=== PATIENT | female | born 1945 | race Caucasian/White ===

== ENCOUNTER 2018-05-03 13:37 | Inpatient (IN) | payer OTHER, MEDICAID ==
[~2018-05-03] VITALS: Ht 180.3 cm; Wt 64.9 kg
[2018-05-03 13:40] VITALS: BP_SYST 127
[2018-05-03] MEDS ORDERED: NACL 0.9% 1,000 ML IV ONE (13:45)
[2018-05-03 14:07] LABS: BASOPHILS # (AUTO) 0.1 K/uL (0.0-0.2); BASOPHILS % (AUTO) 1.2 % (0.0-2.0); EOSINOPHILS # (AUTO) 0.1 K/uL (0.0-0.4); HEMATOCRIT 33.9 % (36-48); HEMOGLOBIN 11.5 g/dL (12.0-16.0); LYMPHOCYTES # (AUTO) 1.2 K/uL (1.0-5.5); LYMPHOCYTES % (AUTO) 21.9 % (20.5-51.5); MEAN CORPUSCULAR HEMOGLOBIN 34 pg (27-31); MEAN CORPUSCULAR HGB CONC 34 % (32-36); MEAN CORPUSCULAR VOLUME 100 fL (79.0-98.0); MONOCYTES # (AUTO) 0.3 K/uL (0.0-1.0); MONOCYTES % (AUTO) 5.5 % (1.7-9.3); NEUTROPHILS # (AUTO) 3.9 K/uL (1.8-7.7); NEUTROPHILS % (AUTO) 69.4 % (40.0-70.0); PLATELET COUNT (AUTO) 228 K/uL (130-430); RED BLOOD CELL COUNT(AUTO) 3.38 MIL/uL (4.2-6.2); RED CELL DISTRIBUTION WIDTH 12.9 % (9.0-15.0); WHITE BLOOD COUNT (AUTO) 5.6 K/uL (4.8-10.8)
[2018-05-03 14:15] LABS: ANION GAP 6 (5-15); CALCIUM 8.7 mg/dL (8.4-11.0); CHLORIDE 99 mmol/L (98-107); GLUCOSE 167 mg/dL (70-99); POTASSIUM 4.3 mmol/L (3.5-5.1); SODIUM SERUM 133 mmol/L (136-145); UREA NITROGEN, BLOOD 19 mg/dL (8-21)
[2018-05-03 14:20] LABS: ALANINE AMINOTRANSFERASE 25 U/L (12-78); ALBUMIN 3.1 g/dL (3.4-4.8); ASPARTATE AMINOTRANSFERASE 20 U/L (10-37); TOTAL BILIRUBIN 0.3 mg/dL (0.0-1.0)
[2018-05-03 15:09] LABS: BILIRUBIN,URINE NEGATIVE (NEGATIVE); BLOOD, URINE NEGATIVE (NEGATIVE); CLARITY/URINE CLEAR (CLEAR); COLOR,URINE YELLOW (YELLOW); GLUCOSE,URINE NEGATIVE (NEGATIVE); KETONES,URINE NEGATIVE (NEGATIVE); LEUKOCYTE ESTERASE ,URINE NEGATIVE (NEGATIVE); NITRITE, URINE NEGATIVE (NEGATIVE); PROTEIN URINE NEGATIVE (NEGATIVE); UROBILINOGEN,URINE 0.2 (0.2-1.0)
[2018-05-03] MEDS ORDERED: PRIM50TA27 PO (16:16)
[2018-05-03] MEDS ORDERED: HYDR-3924 PO (16:16)
[2018-05-03] MEDS ORDERED: ANT30 PO (16:16)
[2018-05-03] MEDS ORDERED: DICL75TA5 PO (16:16)
[2018-05-03] MEDS ORDERED: MULT PO (16:16)
[2018-05-03] MEDS ORDERED: NEU100 PO (16:16)
[2018-05-03] MEDS ORDERED: CYAI1000 IM (16:16)
[2018-05-03] MEDS ORDERED: FLUT16SP16 NS (16:16)
[2018-05-03] MEDS ORDERED: CALC1TAB26 PO (16:16)
[2018-05-03] MEDS ORDERED: FAMO20TA8 PO (16:16)
[2018-05-03] MEDS ORDERED: ACET325T53 PO ×2 (16:16)
[2018-05-03] MEDS ORDERED: RIVA15TA PO (16:16)
[2018-05-03] MEDS ORDERED: VITD2000 PO (16:16)
[2018-05-03 16:53] VITALS: BP_SYST 132
[2018-05-03] MEDS: KCL 20 mEq in D5/0.45NS 1000mL 1,000 ML IV SCH (18:37)
[2018-05-03] MEDS ORDERED: MILK OF MAGNESIA 30 ML UDC PO PRN (19:45)
[2018-05-03] MEDS ORDERED: ACETAMINOPHEN 325 MG TABLET PO PRN ×2 (19:45)
[2018-05-03] MEDS ORDERED: FLUTICASONE PROPIONATE 50 mCg/SPRAY 16 GM NS PRN (19:45)
[2018-05-03] MEDS ORDERED: HYDROcodone/ACETAMIN 7.5-325 MG TAB PO PRN (19:45)
[2018-05-03] MEDS ORDERED: MAG-AL HYDROX/SIMETH 30 ML UDC PO PRN (19:45)
[2018-05-03 20:00] VITALS: BP_SYST 110
[2018-05-03] MEDS: GABAPENTIN 100 MG CAPSULE PO SCH (20:47)
[2018-05-03] MEDS: RIVAROXABAN 15 MG TABLET PO SCH (20:48)
[2018-05-03] MEDS: PRIMIDONE 50 MG TABLET PO SCH (20:48)
[2018-05-03] MEDS: DICLOFENAC SODIUM 25 MG TABLET.DR PO SCH (20:48)
[2018-05-03] MEDS: MEGESTROL ACETATE 400 MG/10 ML UDC PO SCH (20:49)
[2018-05-04 01:00] VITALS: BP_SYST 149
[2018-05-04] MEDS: KCL 20 mEq in D5/0.45NS 1000mL 1,000 ML IV SCH ×2 (05:10→17:43)
[2018-05-04 08:00] VITALS: BP_SYST 116
[2018-05-04] MEDS: MEGESTROL ACETATE 400 MG/10 ML UDC PO SCH ×2 (09:16→20:09)
[2018-05-04] MEDS: CHOLECALCIFEROL (VITAMIN D3) 2,000 UNIT TABLET PO SCH (09:17)
[2018-05-04] MEDS: MULTIVITAMINS TAB 1 TABLET PO SCH (09:17)
[2018-05-04] MEDS: DICLOFENAC SODIUM 25 MG TABLET.DR PO SCH ×2 (09:17→20:08)
[2018-05-04] MEDS: PRIMIDONE 50 MG TABLET PO SCH ×2 (09:17→20:09)
[2018-05-04] MEDS: GABAPENTIN 100 MG CAPSULE PO SCH ×2 (09:17→20:09)
[2018-05-04] MEDS: FAMOTIDINE 20 MG TABLET PO SCH (09:17)
[2018-05-04] MEDS ORDERED: MILK OF MAGNESIA 30 ML UDC PO PRN (10:15)
[2018-05-04] MEDS ORDERED: CALCIUM CARBONATE/VITAMIN D3 1 TAB TABLET PO ONE (10:15)
[2018-05-04 12:30] VITALS: BP_SYST 119
[2018-05-04 16:30] VITALS: BP_SYST 116
[2018-05-04 20:00] VITALS: BP_SYST 136
[2018-05-04] MEDS: RIVAROXABAN 15 MG TABLET PO SCH (20:09)
[2018-05-05 01:12] VITALS: BP_SYST 130
[2018-05-05] MEDS: GABAPENTIN 100 MG CAPSULE PO SCH ×2 (09:39→21:04)
[2018-05-05] MEDS: MULTIVITAMINS TAB 1 TABLET PO SCH (09:39)
[2018-05-05] MEDS: CALCIUM CARBONATE/VITAMIN D3 1 TAB TABLET PO SCH (09:39)
[2018-05-05] MEDS: CHOLECALCIFEROL (VITAMIN D3) 2,000 UNIT TABLET PO SCH (09:39)
[2018-05-05] MEDS: FAMOTIDINE 20 MG TABLET PO SCH (09:40)
[2018-05-05] MEDS: MEGESTROL ACETATE 400 MG/10 ML UDC PO SCH ×2 (09:40→21:04)
[2018-05-05] MEDS: DICLOFENAC SODIUM 25 MG TABLET.DR PO SCH ×2 (09:40→21:05)
[2018-05-05] MEDS: PRIMIDONE 50 MG TABLET PO SCH ×2 (09:40→21:04)
[2018-05-05] MEDS: KCL 20 mEq in D5/0.45NS 1000mL 1,000 ML IV SCH ×2 (10:21→23:46)
[2018-05-05 12:48] VITALS: BP_SYST 149
[2018-05-05 16:29] VITALS: BP_SYST 107
[2018-05-05 20:00] VITALS: BP_SYST 132
[2018-05-05] MEDS: MUPIROCIN 2% TOPICAL OINTMENT 22 GM NS SCH (21:04)
[2018-05-05] MEDS: RIVAROXABAN 15 MG TABLET PO SCH (21:04)
[2018-05-05 23:27] VITALS: BP_SYST 146
[2018-05-06 08:00] VITALS: BP_SYST 130
[2018-05-06] MEDS: PRIMIDONE 50 MG TABLET PO SCH (10:25)
[2018-05-06] MEDS: CHOLECALCIFEROL (VITAMIN D3) 2,000 UNIT TABLET PO SCH (10:25)
[2018-05-06] MEDS: GABAPENTIN 100 MG CAPSULE PO SCH (10:25)
[2018-05-06] MEDS: MEGESTROL ACETATE 400 MG/10 ML UDC PO SCH (10:25)
[2018-05-06] MEDS: FAMOTIDINE 20 MG TABLET PO SCH (10:25)
[2018-05-06] MEDS: MULTIVITAMINS TAB 1 TABLET PO SCH (10:25)
[2018-05-06] MEDS: DICLOFENAC SODIUM 25 MG TABLET.DR PO SCH (10:26)
[2018-05-06] MEDS: CALCIUM CARBONATE/VITAMIN D3 1 TAB TABLET PO SCH (10:26)
[2018-05-06] MEDS: MUPIROCIN 2% TOPICAL OINTMENT 22 GM NS SCH (10:26)
[2018-05-06 12:20] VITALS: BP_SYST 130
[2018-05-06 15:12] VITALS: BP_SYST 130
[2018-05-06 16:08] VITALS: BP_SYST 117
[2018-06-02] MEDS ORDERED: CYANOCOBALAMIN 1000 MCG/ML VIAL IM SCH (06:30)
== END 2018-05-06 16:15 | DRG 641 ==
LOC: SED 13:37 → SMU 15:59
PROVIDERS: ADMIT Family Medicine; ATTEND Family Medicine
DX: E86.0 Dehydration (principal); E44.1 Mild protein-calorie malnutrition; Z68.1 Body mass index [BMI] 19.9 or less, adult; R62.7 Adult failure to thrive; G20 Parkinson's disease; M25.552 Pain in left hip; D64.9 Anemia, unspecified; G40.909 Epilepsy, unspecified, not intractable, without status epilepticus; M81.0 Age-related osteoporosis without current pathological fracture; M19.90 Unspecified osteoarthritis, unspecified site; Z86.718 Personal history of other venous thrombosis and embolism; Z87.81 Personal history of (healed) traumatic fracture; Z88.5 Allergy status to narcotic agent; Z88.8 Allergy status to other drugs, medicaments and biological substances
CPT/HCPCS: 36415; 71045; 73502; 80053; 81003; 83605; 84484; 85025; 87040-TC; 87081; 93005; 96360; 97110-GP; 97116-GP; 97530-GP; 99285

== ENCOUNTER 2018-05-10 09:02 | Outpatient (CLI) | payer OTHER ==
[~2018-05-10 09:02] MED LIST: ACET325T53 PO; ANT30 PO; CALC1TAB26 PO; CYAI1000 IM; DICL75TA5 PO; FAMO20TA8 PO; FLUT16SP16 NS; HYDR-3924 PO; MULT PO; NEU100 PO; PRIM50TA27 PO; RIVA15TA PO; VITD2000 PO
== END 2018-05-10 20:54 | disposition home or self-care (01) ==
LOC: SMI 09:02
PROVIDERS: ATTEND Family Medicine
DX: I63.9 Cerebral infarction, unspecified (principal)
CPT/HCPCS: 70551

== ENCOUNTER 2018-05-18 03:20 | Inpatient (IN) | payer OTHER, MEDICAID ==
[~2018-05-18] VITALS: Ht 170.2 cm; Wt 57.6 kg
[2018-05-18 03:25] VITALS: BP_SYST 169
[2018-05-18 04:29] LABS: BASOPHILS # (AUTO) 0.1 K/uL (0.0-0.2); EOSINOPHILS # (AUTO) 0.1 K/uL (0.0-0.4); EOSINOPHILS % (AUTO) 1.8 % (0.0-4.0); HEMATOCRIT 35.9 % (36-48); HEMOGLOBIN 12.7 g/dL (12.0-16.0); LYMPHOCYTES # (AUTO) 1.3 K/uL (1.0-5.5); LYMPHOCYTES % (AUTO) 17.3 % (20.5-51.5); MEAN CORPUSCULAR HEMOGLOBIN 35 pg (27-31); MEAN CORPUSCULAR HGB CONC 35 % (32-36); MEAN CORPUSCULAR VOLUME 99 fL (79.0-98.0); MONOCYTES # (AUTO) 0.3 K/uL (0.0-1.0); MONOCYTES % (AUTO) 3.6 % (1.7-9.3); NEUTROPHILS # (AUTO) 5.9 K/uL (1.8-7.7); NEUTROPHILS % (AUTO) 76.3 % (40.0-70.0); PLATELET COUNT (AUTO) 316 K/uL (130-430); RED BLOOD CELL COUNT(AUTO) 3.62 MIL/uL (4.2-6.2); RED CELL DISTRIBUTION WIDTH 12.6 % (9.0-15.0); WHITE BLOOD COUNT (AUTO) 7.7 K/uL (4.8-10.8)
[2018-05-18 04:37] LABS: ANION GAP 9 (5-15); CALCIUM 8.2 mg/dL (8.4-11.0); CHLORIDE 91 mmol/L (98-107); GLUCOSE 125 mg/dL (70-99); POTASSIUM 3.8 mmol/L (3.5-5.1); SODIUM SERUM 125 mmol/L (136-145); UREA NITROGEN, BLOOD 15 mg/dL (8-21)
[2018-05-18 04:44] LABS: ALANINE AMINOTRANSFERASE 28 U/L (12-78); ALBUMIN 3.4 g/dL (3.4-4.8); ASPARTATE AMINOTRANSFERASE 22 U/L (10-37); TOTAL BILIRUBIN 0.5 mg/dL (0.0-1.0)
[2018-05-18 05:08] LABS: PHENYTOIN (DILANTIN) < 0.5 ug/mL (10.0-20.0)
[2018-05-18] MEDS ORDERED: MEGE400O PO (05:31)
[2018-05-18] MEDS ORDERED: LEVE500T9 PO (05:31)
[2018-05-18] MEDS ORDERED: PRIM50TA27 PO (05:31)
[2018-05-18] MEDS ORDERED: PHEN100C4 PO (05:31)
[2018-05-18] MEDS ORDERED: POTASSIUM CHLORIDE 20 MEQ in D5NS 1,000 ML IV SCH ×2 (05:40→07:00)
[2018-05-18 05:44] LABS: BILIRUBIN,URINE NEGATIVE (NEGATIVE); BLOOD, URINE NEGATIVE (NEGATIVE); CLARITY/URINE CLEAR (CLEAR); COLOR,URINE YELLOW (YELLOW); GLUCOSE,URINE NEGATIVE (NEGATIVE); KETONES,URINE TRACE (NEGATIVE); LEUKOCYTE ESTERASE ,URINE NEGATIVE (NEGATIVE); NITRITE, URINE NEGATIVE (NEGATIVE); PH,URINE 6.5 (5.0-8.0); PROTEIN URINE NEGATIVE (NEGATIVE); UROBILINOGEN,URINE 0.2 (0.2-1.0)
[2018-05-18] MEDS ORDERED: LORazepam 2 MG/ML VIAL IVP PRN (05:45)
[2018-05-18 06:08] VITALS: BP_SYST 158
[2018-05-18] MEDS ORDERED: levETIRAcetam 500 MG TABLET PO SCH ×2 (09:00→21:00)
[2018-05-18] MEDS ORDERED: HYDROcodone/ACETAMIN 7.5-325 MG TAB PO PRN (09:45)
[2018-05-18] MEDS ORDERED: FLUTICASONE PROPIONATE 50 mCg/SPRAY 16 GM NS PRN (09:45)
[2018-05-18] MEDS ORDERED: ACETAMINOPHEN 325 MG TABLET PO PRN ×2 (09:45)
[2018-05-18] MEDS ORDERED: MAG-AL HYDROX/SIMETH 30 ML UDC PO PRN (09:45)
[2018-05-18] MEDS ORDERED: MILK OF MAGNESIA 30 ML UDC PO PRN ×2 (09:45→10:15)
[2018-05-18] MEDS ORDERED: CALCIUM CARBONATE/VITAMIN D3 1 TAB TABLET PO ONE (10:15)
[2018-05-18] MEDS ORDERED: PRIMIDONE 50 MG TABLET PO ONE (10:30)
[2018-05-18] MEDS ORDERED: CHOLECALCIFEROL (VITAMIN D3) 2,000 UNIT TABLET PO ONE (10:30)
[2018-05-18] MEDS ORDERED: MULTIVITAMINS TAB 1 TABLET PO ONE (10:30)
[2018-05-18] MEDS ORDERED: DICLOFENAC SODIUM 25 MG TABLET.DR PO ONE (10:30)
[2018-05-18] MEDS ORDERED: SODIUM CHLORIDE 3% *HI-ALERT* 500 ML IV SCH (10:30)
[2018-05-18] MEDS ORDERED: MEGESTROL ACETATE 400 MG/10 ML UDC PO ONE (10:30)
[2018-05-18] MEDS ORDERED: FAMOTIDINE 20 MG TABLET PO ONE (10:30)
[2018-05-18 12:45] VITALS: BP_SYST 125
[2018-05-18 14:24] LABS: ANION GAP 7 (5-15); CALCIUM 8.7 mg/dL (8.4-11.0); CHLORIDE 94 mmol/L (98-107); CREATININE 0.56 mg/dL (0.55-1.30); GLUCOSE 114 mg/dL (70-99); POTASSIUM 4.2 mmol/L (3.5-5.1); SODIUM SERUM 128 mmol/L (136-145); UREA NITROGEN, BLOOD 13 mg/dL (8-21)
[2018-05-18 14:40] LABS: THYROID STIMULATING HORMONE 0.97 uIu/mL (0.34-4.82)
[2018-05-18 14:51] LABS: PHENYTOIN (DILANTIN) < 0.5 ug/mL (10.0-20.0)
[2018-05-18 16:15] LABS: PHENOBARBITAL < 1.0 ug/mL (15.0-40.0)
[2018-05-18 16:51] VITALS: BP_SYST 115
[2018-05-18 20:30] VITALS: BP_SYST 123
[2018-05-18] MEDS: PHENYTOIN 100 MG CAPSULE PO SCH (20:59)
[2018-05-18] MEDS: DICLOFENAC SODIUM 25 MG TABLET.DR PO SCH (21:00)
[2018-05-18] MEDS: PRIMIDONE 50 MG TABLET PO SCH (21:00)
[2018-05-18] MEDS: levETIRAcetam 500 MG TABLET PO SCH (21:00)
[2018-05-18] MEDS: RIVAROXABAN 15 MG TABLET PO SCH (21:00)
[2018-05-19 00:31] VITALS: BP_SYST 116
[2018-05-19 06:11] LABS: ALANINE AMINOTRANSFERASE 22 U/L (12-78); ALBUMIN 2.7 g/dL (3.4-4.8); ANION GAP 5 (5-15); ASPARTATE AMINOTRANSFERASE 16 U/L (10-37); CALCIUM 8.2 mg/dL (8.4-11.0); CHLORIDE 99 mmol/L (98-107); CREATININE 0.49 mg/dL (0.55-1.30); GLUCOSE 92 mg/dL (70-99); POTASSIUM 4.2 mmol/L (3.5-5.1); SODIUM SERUM 129 mmol/L (136-145); TOTAL BILIRUBIN 0.4 mg/dL (0.0-1.0); UREA NITROGEN, BLOOD 20 mg/dL (8-21)
[2018-05-19 06:26] LABS: BASOPHILS # (AUTO) 0.1 K/uL (0.0-0.2); BASOPHILS % (AUTO) 1.3 % (0.0-2.0); EOSINOPHILS # (AUTO) 0.2 K/uL (0.0-0.4); EOSINOPHILS % (AUTO) 2.5 % (0.0-4.0); HEMATOCRIT 33.8 % (36-48); HEMOGLOBIN 11.9 g/dL (12.0-16.0); LYMPHOCYTES # (AUTO) 1.6 K/uL (1.0-5.5); LYMPHOCYTES % (AUTO) 24.8 % (20.5-51.5); MEAN CORPUSCULAR HEMOGLOBIN 35 pg (27-31); MEAN CORPUSCULAR HGB CONC 35 % (32-36); MEAN CORPUSCULAR VOLUME 100 fL (79.0-98.0); MONOCYTES # (AUTO) 0.4 K/uL (0.0-1.0); MONOCYTES % (AUTO) 6.4 % (1.7-9.3); NEUTROPHILS # (AUTO) 4.3 K/uL (1.8-7.7); PLATELET COUNT (AUTO) 251 K/uL (130-430); RED CELL DISTRIBUTION WIDTH 12.5 % (9.0-15.0); WHITE BLOOD COUNT (AUTO) 6.6 K/uL (4.8-10.8)
[2018-05-19 08:00] VITALS: BP_SYST 115
[2018-05-19] MEDS: levETIRAcetam 500 MG TABLET PO SCH ×2 (08:14→21:41)
[2018-05-19] MEDS: CALCIUM CARBONATE/VITAMIN D3 1 TAB TABLET PO SCH (08:15)
[2018-05-19] MEDS: DICLOFENAC SODIUM 25 MG TABLET.DR PO SCH ×2 (08:15→21:41)
[2018-05-19] MEDS: MULTIVITAMINS TAB 1 TABLET PO SCH (08:15)
[2018-05-19] MEDS: MEGESTROL ACETATE 400 MG/10 ML UDC PO SCH (08:15)
[2018-05-19] MEDS: PRIMIDONE 50 MG TABLET PO SCH ×2 (08:15→21:40)
[2018-05-19] MEDS: CHOLECALCIFEROL (VITAMIN D3) 2,000 UNIT TABLET PO SCH (08:16)
[2018-05-19] MEDS: FAMOTIDINE 20 MG TABLET PO SCH (08:16)
[2018-05-19] MEDS ORDERED: SODIUM CHLORIDE 3% *HI-ALERT* 250 ML IV ONE (10:15)
[2018-05-19 12:24] VITALS: BP_SYST 112
[2018-05-19 16:16] LABS: BILIRUBIN,URINE NEGATIVE (NEGATIVE); BLOOD, URINE 2+ (NEGATIVE); CLARITY/URINE CLOUDY (CLEAR); COLOR,URINE YELLOW (YELLOW); GLUCOSE,URINE NEGATIVE (NEGATIVE); KETONES,URINE NEGATIVE (NEGATIVE); LEUKOCYTE ESTERASE ,URINE 2+ (NEGATIVE); NITRITE, URINE NEGATIVE (NEGATIVE); PROTEIN URINE NEGATIVE (NEGATIVE); UROBILINOGEN,URINE 0.2 (0.2-1.0)
[2018-05-19 16:20] LABS: BACTERIA,URINE MODERATE /HPF (None Seen); URINE AMORPHOUS URATE 2+ /HPF (None Seen)
[2018-05-19] MEDS ORDERED: CEFEPIME 1 GM in D5W 50 ML IV ONE (19:00)
[2018-05-19 20:00] VITALS: BP_SYST 117
[2018-05-19] MEDS ORDERED: MEROPENEM 500 MG in NS 50 ML IV SCH (21:00)
[2018-05-19] MEDS: PHENYTOIN 100 MG CAPSULE PO SCH (21:41)
[2018-05-19] MEDS: RIVAROXABAN 15 MG TABLET PO SCH (21:41)
[2018-05-19 23:05] VITALS: BP_SYST 146
[2018-05-20 06:54] LABS: BASOPHILS # (AUTO) 0.1 K/uL (0.0-0.2); BASOPHILS % (AUTO) 2.1 % (0.0-2.0); EOSINOPHILS # (AUTO) 0.2 K/uL (0.0-0.4); EOSINOPHILS % (AUTO) 3.7 % (0.0-4.0); HEMATOCRIT 35.1 % (36-48); HEMOGLOBIN 12.2 g/dL (12.0-16.0); LYMPHOCYTES # (AUTO) 1.5 K/uL (1.0-5.5); LYMPHOCYTES % (AUTO) 24.6 % (20.5-51.5); MEAN CORPUSCULAR HEMOGLOBIN 35 pg (27-31); MEAN CORPUSCULAR HGB CONC 35 % (32-36); MEAN CORPUSCULAR VOLUME 100 fL (79.0-98.0); MONOCYTES # (AUTO) 0.4 K/uL (0.0-1.0); NEUTROPHILS # (AUTO) 4.1 K/uL (1.8-7.7); NEUTROPHILS % (AUTO) 62.6 % (40.0-70.0); PLATELET COUNT (AUTO) 246 K/uL (130-430); RED BLOOD CELL COUNT(AUTO) 3.51 MIL/uL (4.2-6.2); RED CELL DISTRIBUTION WIDTH 12.4 % (9.0-15.0); WHITE BLOOD COUNT (AUTO) 6.3 K/uL (4.8-10.8)
[2018-05-20 07:53] LABS: ALANINE AMINOTRANSFERASE 25 U/L (12-78); ALBUMIN 3.1 g/dL (3.4-4.8); ANION GAP 10 (5-15); ASPARTATE AMINOTRANSFERASE 20 U/L (10-37); CALCIUM 8.6 mg/dL (8.4-11.0); CHLORIDE 95 mmol/L (98-107); CREATININE 0.39 mg/dL (0.55-1.30); GLUCOSE 93 mg/dL (70-99); SODIUM SERUM 129 mmol/L (136-145); TOTAL BILIRUBIN 0.4 mg/dL (0.0-1.0); UREA NITROGEN, BLOOD 11 mg/dL (8-21)
[2018-05-20 07:57] VITALS: BP_SYST 147
[2018-05-20] MEDS: MULTIVITAMINS TAB 1 TABLET PO SCH (09:35)
[2018-05-20] MEDS: FAMOTIDINE 20 MG TABLET PO SCH (09:35)
[2018-05-20] MEDS: CEFEPIME 1 GM in D5W 50 ML IV SCH (09:35)
[2018-05-20] MEDS: CALCIUM CARBONATE/VITAMIN D3 1 TAB TABLET PO SCH (09:35)
[2018-05-20] MEDS: PRIMIDONE 50 MG TABLET PO SCH ×2 (09:35→23:06)
[2018-05-20] MEDS: levETIRAcetam 500 MG TABLET PO SCH ×2 (09:35→23:05)
[2018-05-20] MEDS: CHOLECALCIFEROL (VITAMIN D3) 2,000 UNIT TABLET PO SCH (09:35)
[2018-05-20] MEDS: DICLOFENAC SODIUM 25 MG TABLET.DR PO SCH ×2 (09:36→23:05)
[2018-05-20] MEDS: MEGESTROL ACETATE 400 MG/10 ML UDC PO SCH (09:49)
[2018-05-20 12:15] VITALS: BP_SYST 110
[2018-05-20] MEDS ORDERED: PHENYTOIN SODIUM INJ 1,000 MG in NS 100 ML IV ONE (14:15)
[2018-05-20 16:10] VITALS: BP_SYST 104
[2018-05-20 20:18] VITALS: BP_SYST 102
[2018-05-20] MEDS: PHENYTOIN 100 MG CAPSULE PO SCH (23:03)
[2018-05-20] MEDS: RIVAROXABAN 15 MG TABLET PO SCH (23:05)
[2018-05-21 00:13] VITALS: BP_SYST 98
[2018-05-21 08:00] VITALS: BP_SYST 109
[2018-05-21] MEDS: FAMOTIDINE 20 MG TABLET PO SCH (09:38)
[2018-05-21] MEDS: CHOLECALCIFEROL (VITAMIN D3) 2,000 UNIT TABLET PO SCH (09:38)
[2018-05-21] MEDS: MEGESTROL ACETATE 400 MG/10 ML UDC PO SCH (09:38)
[2018-05-21] MEDS: levETIRAcetam 500 MG TABLET PO SCH ×2 (09:38→20:37)
[2018-05-21] MEDS: CALCIUM CARBONATE/VITAMIN D3 1 TAB TABLET PO SCH (09:39)
[2018-05-21] MEDS: MULTIVITAMINS TAB 1 TABLET PO SCH (09:39)
[2018-05-21] MEDS: PRIMIDONE 50 MG TABLET PO SCH ×2 (09:43→20:37)
[2018-05-21] MEDS: DICLOFENAC SODIUM 25 MG TABLET.DR PO SCH ×2 (09:43→20:37)
[2018-05-21] MEDS: CEFEPIME 1 GM in D5W 50 ML IV SCH ×4 (09:50→20:38)
[2018-05-21] MEDS ORDERED: NS 500 ML IV ONE (11:30)
[2018-05-21 12:25] VITALS: BP_SYST 92
[2018-05-21 16:15] VITALS: BP_SYST 107
[2018-05-21 20:17] VITALS: BP_SYST 105
[2018-05-21] MEDS: PHENYTOIN 100 MG CAPSULE PO SCH (20:37)
[2018-05-21] MEDS: RIVAROXABAN 15 MG TABLET PO SCH (20:37)
[2018-05-22 00:50] VITALS: BP_SYST 128
[2018-05-22 08:00] VITALS: BP_SYST 118
[2018-05-22] MEDS: MEGESTROL ACETATE 400 MG/10 ML UDC PO SCH (09:17)
[2018-05-22] MEDS: CALCIUM CARBONATE/VITAMIN D3 1 TAB TABLET PO SCH (09:17)
[2018-05-22] MEDS: PRIMIDONE 50 MG TABLET PO SCH ×2 (09:17→20:22)
[2018-05-22] MEDS: DICLOFENAC SODIUM 25 MG TABLET.DR PO SCH ×2 (09:17→20:22)
[2018-05-22] MEDS: FAMOTIDINE 20 MG TABLET PO SCH (09:17)
[2018-05-22] MEDS: CEFEPIME 1 GM in D5W 50 ML IV SCH ×2 (09:17→20:16)
[2018-05-22] MEDS: levETIRAcetam 500 MG TABLET PO SCH ×2 (09:18→20:21)
[2018-05-22] MEDS: CHOLECALCIFEROL (VITAMIN D3) 2,000 UNIT TABLET PO SCH (09:18)
[2018-05-22] MEDS: MULTIVITAMINS TAB 1 TABLET PO SCH (09:18)
[2018-05-22 10:08] LABS: ANION GAP 7 (5-15); CALCIUM 7.6 mg/dL (8.4-11.0); CHLORIDE 98 mmol/L (98-107); CREATININE 0.59 mg/dL (0.55-1.30); GLUCOSE 123 mg/dL (70-99); SODIUM SERUM 129 mmol/L (136-145); UREA NITROGEN, BLOOD 15 mg/dL (8-21)
[2018-05-22 12:00] VITALS: BP_SYST 120
[2018-05-22 16:57] VITALS: BP_SYST 123
[2018-05-22] MEDS ORDERED: LEVE1000 PO (19:31)
[2018-05-22] MEDS ORDERED: LEVE10006 PO (19:33)
[2018-05-22 20:10] VITALS: BP_SYST 136
[2018-05-22] MEDS: PHENYTOIN 100 MG CAPSULE PO SCH (20:21)
[2018-05-22] MEDS: RIVAROXABAN 15 MG TABLET PO SCH (20:22)
[2018-05-22 20:45] VITALS: BP_SYST 136
[2018-06-17] MEDS ORDERED: CYANOCOBALAMIN 1000 MCG/ML VIAL IM SCH (06:30)
== END 2018-05-22 21:35 | DRG 100 ==
LOC: SED 03:20 → STU 05:40
PROVIDERS: ADMIT Family Medicine; ATTEND Family Medicine
DX: G40.909 Epilepsy, unspecified, not intractable, without status epilepticus (principal); E43 Unspecified severe protein-calorie malnutrition; G93.41 Metabolic encephalopathy; E87.1 Hypo-osmolality and hyponatremia; N39.0 Urinary tract infection, site not specified; Z68.1 Body mass index [BMI] 19.9 or less, adult; G20 Parkinson's disease; I73.9 Peripheral vascular disease, unspecified; M81.0 Age-related osteoporosis without current pathological fracture; F32.9 Major depressive disorder, single episode, unspecified; F02.80 Dementia in other diseases classified elsewhere, unspecified severity, without behavioral disturbance, psychotic disturbance, mood disturbance, and anxiety; M19.90 Unspecified osteoarthritis, unspecified site; N18.9 Chronic kidney disease, unspecified; I12.9 Hypertensive chronic kidney disease with stage 1 through stage 4 chronic kidney disease, or unspecified chronic kidney disease; M51.36 Other intervertebral disc degeneration, lumbar region; Z79.899 Other long term (current) drug therapy; Z86.73 Personal history of transient ischemic attack (TIA), and cerebral infarction without residual deficits; Z87.891 Personal history of nicotine dependence; Z88.6 Allergy status to analgesic agent; Z88.8 Allergy status to other drugs, medicaments and biological substances; Z90.49 Acquired absence of other specified parts of digestive tract; Z86.718 Personal history of other venous thrombosis and embolism; Z79.01 Long term (current) use of anticoagulants
CPT/HCPCS: 36415; 70450-TC; 80048; 80053; 80184-TC; 80185-TC; 81000-TC; 81003; 82533; 82542; 83735-TC; 84443-TC; 85025; 87081; 87086; 93306; 93880; 95816; 97110-GP; 97116-GP; 97530-GP; 99285; J0692; J1165; J3480; J3490; J7040; J7042; J7060

== ENCOUNTER 2018-07-12 11:31 | Inpatient (IN) | payer OTHER, MEDICAID ==
[~2018-07-12] VITALS: Ht 180.3 cm; Wt 64.0 kg
[~2018-07-12 11:31] MED LIST changes: +LEVE10006 PO; +MEGE400O PO; +MIDAZOLAM HCL 5 MG/5 ML VIAL IVP ONE; -NEU100 PO; +PHEN100C4 PO; +PROPOFOL 200MG/ 20ML VIAL (DIPRIVAN) IV ONE; +WATER FOR IRRIGATION,STERILE 4,000 ML IRRIG.SOLN IR ONE; +cefTRIAXone 1 GM IVPB PREMIX 50 ML IV ONE
[2018-07-12 12:01] VITALS: BP_SYST 101
[2018-07-12] MEDS ORDERED: NACL 0.9% 1,000 ML IV ONE ×2 (12:45→13:45)
[2018-07-12 12:58] LABS: BASOPHILS # (AUTO) 0.3 K/uL (0.0-0.2); BASOPHILS % (AUTO) 3.8 % (0.0-2.0); EOSINOPHILS # (AUTO) 0.3 K/uL (0.0-0.4); EOSINOPHILS % (AUTO) 3.4 % (0.0-4.0); HEMATOCRIT 31.3 % (36-48); HEMOGLOBIN 10.7 g/dL (12.0-16.0); LYMPHOCYTES # (AUTO) 1.8 K/uL (1.0-5.5); MEAN CORPUSCULAR HEMOGLOBIN 33 pg (27-31); MEAN CORPUSCULAR HGB CONC 34 % (32-36); MEAN CORPUSCULAR VOLUME 98 fL (79.0-98.0); MONOCYTES # (AUTO) 0.7 K/uL (0.0-1.0); MONOCYTES % (AUTO) 8.3 % (1.7-9.3); NEUTROPHILS # (AUTO) 5.9 K/uL (1.8-7.7); NEUTROPHILS % (AUTO) 64.5 % (40.0-70.0); PLATELET COUNT (AUTO) 296 K/uL (130-430); RED BLOOD CELL COUNT(AUTO) 3.19 MIL/uL (4.2-6.2); RED CELL DISTRIBUTION WIDTH 12.3 % (9.0-15.0)
[2018-07-12 13:10] LABS: ANION GAP 10 (5-15); CALCIUM 8.6 mg/dL (8.4-11.0); CHLORIDE 105 mmol/L (98-107); GLUCOSE 96 mg/dL (70-99); SODIUM SERUM 140 mmol/L (136-145); UREA NITROGEN, BLOOD 37 mg/dL (8-21)
[2018-07-12 13:11] LABS: PROTHROMBIN TIME 10.1 SECS (9.5-12.5)
[2018-07-12 13:19] LABS: ALANINE AMINOTRANSFERASE 40 U/L (12-78); ASPARTATE AMINOTRANSFERASE 32 U/L (10-37); TOTAL BILIRUBIN 0.2 mg/dL (0.0-1.0)
[2018-07-12] MEDS ORDERED: DIPHENHYDRAMINE INJ 50 MG/ML VIAL IVP ONE (13:30)
[2018-07-12] MEDS ORDERED: HALOPERIDOL LACTATE 5 MG/ML VIAL IVP ONE (13:30)
[2018-07-12] MEDS ORDERED: SENN8.6T19 PO (14:21)
[2018-07-12] MEDS ORDERED: MOM PO (14:21)
[2018-07-12] MEDS ORDERED: NA P133E41 RC (14:21)
[2018-07-12] MEDS ORDERED: DOCU-144 PO (14:21)
[2018-07-12] MEDS ORDERED: BISA10SU61 RC (14:22)
[2018-07-12 14:55] VITALS: BP_SYST 117
[2018-07-12 19:15] VITALS: BP_SYST 107
[2018-07-12] MEDS ORDERED: ACETAMINOPHEN 325 MG TABLET PO PRN (19:15)
[2018-07-12] MEDS ORDERED: FLUTICASONE PROPIONATE 50 mCg/SPRAY 16 GM NS PRN (19:15)
[2018-07-12] MEDS ORDERED: MAG-AL HYDROX/SIMETH 30 ML UDC PO PRN (19:15)
[2018-07-12] MEDS ORDERED: MILK OF MAGNESIA 30 ML UDC PO PRN ×2 (19:15)
[2018-07-12] MEDS ORDERED: BISACODYL 10 MG/SUPPOSITORY RC PRN (19:15)
[2018-07-12] MEDS ORDERED: KCL 20 mEq in D5NS 1000 mL 1,000 ML IV SCH (19:15)
[2018-07-12 20:00] VITALS: BP_SYST 118
[2018-07-12] MEDS ORDERED: IOHEXOL 100 ML IV ONE (20:53)
[2018-07-12] MEDS ORDERED: DICLOFENAC SODIUM 25 MG TABLET.DR PO SCH (21:00)
[2018-07-12] MEDS: levETIRAcetam 500 MG TABLET PO SCH (21:47)
[2018-07-12] MEDS: D5/0.45 NS 1,000 ML IV SCH (21:47)
[2018-07-12] MEDS: PHENYTOIN 100 MG CAPSULE PO SCH (21:47)
[2018-07-12] MEDS: PRIMIDONE 50 MG TABLET PO SCH (21:47)
[2018-07-12 22:52] LABS: BILIRUBIN,URINE NEGATIVE (NEGATIVE); BLOOD, URINE 3+ (NEGATIVE); CLARITY/URINE CLOUDY (CLEAR); COLOR,URINE RED (YELLOW); GLUCOSE,URINE NEGATIVE (NEGATIVE); KETONES,URINE NEGATIVE (NEGATIVE); LEUKOCYTE ESTERASE ,URINE 3+ (NEGATIVE); NITRITE, URINE NEGATIVE (NEGATIVE); PH,URINE 5.5 (5.0-8.0); PROTEIN URINE 1+ (NEGATIVE); UROBILINOGEN,URINE 0.2 (0.2-1.0)
[2018-07-12 23:21] LABS: BACTERIA,URINE FEW /HPF (None Seen); RBC,URINE 80-100 /HPF (0-3); WBC,URINE 20-50 /HPF (0-3)
[2018-07-12 23:30] VITALS: BP_SYST 135
[2018-07-13] MEDS: D5/0.45 NS 1,000 ML IV SCH ×2 (06:16→15:51)
[2018-07-13 08:00] VITALS: BP_SYST 123
[2018-07-13] MEDS: FAMOTIDINE 20 MG TABLET PO SCH (09:00)
[2018-07-13] MEDS: MULTIVITAMINS TAB 1 TABLET PO SCH (09:00)
[2018-07-13] MEDS: MEGESTROL ACETATE 400 MG/10 ML UDC PO SCH (09:00)
[2018-07-13] MEDS: PRIMIDONE 50 MG TABLET PO SCH ×2 (09:00→20:36)
[2018-07-13] MEDS: CHOLECALCIFEROL (VITAMIN D3) 2,000 UNIT TABLET PO SCH (09:00)
[2018-07-13] MEDS: levETIRAcetam 500 MG TABLET PO SCH ×2 (09:00→20:36)
[2018-07-13] MEDS: CALCIUM CARBONATE/VITAMIN D3 1 TAB TABLET PO SCH (09:00)
[2018-07-13] MEDS: DOCUSATE SODIUM 100 MG CAPSULE PO SCH (09:00)
[2018-07-13] MEDS ORDERED: LR 1,000 ML IV SCH (12:02)
[2018-07-13] MEDS ORDERED: MEPERIDINE HCL/PF 25 MG/ML DISP.SYRIN IVP PRN (12:15)
[2018-07-13] MEDS ORDERED: HYDROmorphone 1 MG INJ. 1 MG/ML AMPUL IVP PRN (12:15)
[2018-07-13] MEDS ORDERED: HYDROmorphone 2 MG/ML VIAL IVP PRN ×2 (12:15)
[2018-07-13 13:00] VITALS: BP_SYST 113
[2018-07-13 16:58] VITALS: BP_SYST 123
[2018-07-13 16:59] VITALS: BP_SYST 128
[2018-07-13] MEDS: HYDROcodone/ACETAMIN 7.5-325 MG TAB PO PRN ×2 (17:23→20:35)
[2018-07-13 19:10] VITALS: BP_SYST 110
[2018-07-13] MEDS: PHENYTOIN 100 MG CAPSULE PO SCH (20:35)
[2018-07-13] MEDS: MUPIROCIN 2% TOPICAL OINTMENT 22 GM NS SCH (20:38)
[2018-07-13] MEDS: CEFEPIME 1 GM in D5W 50 ML IV SCH (20:38)
[2018-07-14 01:10] VITALS: BP_SYST 120
[2018-07-14] MEDS: D5/0.45 NS 1,000 ML IV SCH ×3 (06:08→21:43)
[2018-07-14 07:08] LABS: BASOPHILS % (AUTO) 0.5 % (0.0-2.0); EOSINOPHILS # (AUTO) 0.3 K/uL (0.0-0.4); EOSINOPHILS % (AUTO) 3.9 % (0.0-4.0); HEMATOCRIT 28.8 % (36-48); HEMOGLOBIN 9.5 g/dL (12.0-16.0); LYMPHOCYTES # (AUTO) 1.5 K/uL (1.0-5.5); LYMPHOCYTES % (AUTO) 21.8 % (20.5-51.5); MEAN CORPUSCULAR HEMOGLOBIN 32 pg (27-31); MEAN CORPUSCULAR HGB CONC 33 % (32-36); MEAN CORPUSCULAR VOLUME 98 fL (79.0-98.0); MONOCYTES # (AUTO) 0.5 K/uL (0.0-1.0); MONOCYTES % (AUTO) 6.8 % (1.7-9.3); NEUTROPHILS # (AUTO) 4.5 K/uL (1.8-7.7); PLATELET COUNT (AUTO) 271 K/uL (130-430); RED BLOOD CELL COUNT(AUTO) 2.94 MIL/uL (4.2-6.2); RED CELL DISTRIBUTION WIDTH 12.2 % (9.0-15.0); WHITE BLOOD COUNT (AUTO) 6.8 K/uL (4.8-10.8)
[2018-07-14 07:19] LABS: ANION GAP 7 (5-15); CALCIUM 8.5 mg/dL (8.4-11.0); CHLORIDE 102 mmol/L (98-107); CREATININE 0.53 mg/dL (0.55-1.30); GLUCOSE 116 mg/dL (70-99); PHOSPHORUS 3.9 mg/dL (2.7-4.5); POTASSIUM 3.8 mmol/L (3.5-5.1); SODIUM SERUM 136 mmol/L (136-145); UREA NITROGEN, BLOOD 11 mg/dL (8-21)
[2018-07-14 08:00] VITALS: BP_SYST 143
[2018-07-14] MEDS: CEFEPIME 1 GM in D5W 50 ML IV SCH ×2 (08:45→21:36)
[2018-07-14] MEDS: levETIRAcetam 500 MG TABLET PO SCH ×2 (08:46→21:37)
[2018-07-14] MEDS: CHOLECALCIFEROL (VITAMIN D3) 2,000 UNIT TABLET PO SCH (08:46)
[2018-07-14] MEDS: PRIMIDONE 50 MG TABLET PO SCH ×2 (08:46→21:37)
[2018-07-14] MEDS: MULTIVITAMINS TAB 1 TABLET PO SCH (08:46)
[2018-07-14] MEDS: CALCIUM CARBONATE/VITAMIN D3 1 TAB TABLET PO SCH (08:46)
[2018-07-14] MEDS: DOCUSATE SODIUM 100 MG CAPSULE PO SCH (08:46)
[2018-07-14] MEDS: FAMOTIDINE 20 MG TABLET PO SCH (08:46)
[2018-07-14] MEDS: MUPIROCIN 2% TOPICAL OINTMENT 22 GM NS SCH ×2 (08:47→21:38)
[2018-07-14] MEDS: MEGESTROL ACETATE 400 MG/10 ML UDC PO SCH (08:47)
[2018-07-14 12:30] VITALS: BP_SYST 106
[2018-07-14 16:37] VITALS: BP_SYST 110
[2018-07-14 20:00] VITALS: BP_SYST 131
[2018-07-14] MEDS: PHENYTOIN 100 MG CAPSULE PO SCH (21:37)
[2018-07-15 00:18] VITALS: BP_SYST 111
[2018-07-15] MEDS: D5/0.45 NS 1,000 ML IV SCH ×2 (06:49→17:56)
[2018-07-15 08:23] VITALS: BP_SYST 121
[2018-07-15] MEDS: CEFEPIME 1 GM in D5W 50 ML IV SCH ×2 (08:54→22:13)
[2018-07-15] MEDS: CALCIUM CARBONATE/VITAMIN D3 1 TAB TABLET PO SCH (08:55)
[2018-07-15] MEDS: MULTIVITAMINS TAB 1 TABLET PO SCH (08:55)
[2018-07-15] MEDS: CHOLECALCIFEROL (VITAMIN D3) 2,000 UNIT TABLET PO SCH (08:55)
[2018-07-15] MEDS: FAMOTIDINE 20 MG TABLET PO SCH (08:55)
[2018-07-15] MEDS: MEGESTROL ACETATE 400 MG/10 ML UDC PO SCH (08:56)
[2018-07-15] MEDS: DOCUSATE SODIUM 100 MG CAPSULE PO SCH (08:56)
[2018-07-15] MEDS: MUPIROCIN 2% TOPICAL OINTMENT 22 GM NS SCH ×2 (08:56→22:14)
[2018-07-15] MEDS: levETIRAcetam 500 MG TABLET PO SCH ×2 (08:56→22:15)
[2018-07-15] MEDS: PRIMIDONE 50 MG TABLET PO SCH ×2 (09:07→22:15)
[2018-07-15 11:50] VITALS: BP_SYST 98
[2018-07-15 16:15] VITALS: BP_SYST 90
[2018-07-15 19:00] VITALS: BP_SYST 105
[2018-07-15 20:00] VITALS: BP_SYST 105
[2018-07-15] MEDS: PHENYTOIN 100 MG CAPSULE PO SCH (22:14)
[2018-07-16] VITALS: BP_SYST 114
[2018-07-16] MEDS: D5/0.45 NS 1,000 ML IV SCH (02:45)
[2018-07-16 08:35] VITALS: BP_SYST 126
[2018-07-16] MEDS: CEFEPIME 1 GM in D5W 50 ML IV SCH (09:35)
[2018-07-16] MEDS: DOCUSATE SODIUM 100 MG CAPSULE PO SCH (09:35)
[2018-07-16] MEDS: MEGESTROL ACETATE 400 MG/10 ML UDC PO SCH (09:35)
[2018-07-16] MEDS: levETIRAcetam 500 MG TABLET PO SCH (09:35)
[2018-07-16] MEDS: CALCIUM CARBONATE/VITAMIN D3 1 TAB TABLET PO SCH (09:35)
[2018-07-16] MEDS: FAMOTIDINE 20 MG TABLET PO SCH (09:36)
[2018-07-16] MEDS: CHOLECALCIFEROL (VITAMIN D3) 2,000 UNIT TABLET PO SCH (09:36)
[2018-07-16] MEDS: MULTIVITAMINS TAB 1 TABLET PO SCH (09:36)
[2018-07-16] MEDS: PRIMIDONE 50 MG TABLET PO SCH (09:36)
[2018-07-16] MEDS: MUPIROCIN 2% TOPICAL OINTMENT 22 GM NS SCH (09:37)
[2018-07-16 11:24] VITALS: BP_SYST 122
[2018-07-16 14:30] VITALS: BP_SYST 112
[2018-07-16 16:18] VITALS: BP_SYST 112
[2018-08-11] MEDS ORDERED: CYANOCOBALAMIN 1000 MCG/ML VIAL IM SCH (06:30)
== END 2018-07-16 15:45 | DRG 669 ==
LOC: SED 11:31 → SMU 14:08
PROVIDERS: ADMIT Family Medicine; ATTEND Family Medicine
PROC: 0TBB8ZZ Excision of Bladder, Via Natural or Artificial Opening Endoscopic (ICD-10-PCS; 2018-07-13)
PROC: 0TCB8ZZ Extirpation of Matter from Bladder, Via Natural or Artificial Opening Endoscopic (ICD-10-PCS; principal; 2018-07-13 10:30)
DX: D49.4 Neoplasm of unspecified behavior of bladder (principal); D62 Acute posthemorrhagic anemia; N39.0 Urinary tract infection, site not specified; R65.10 Systemic inflammatory response syndrome (SIRS) of non-infectious origin without acute organ dysfunction; G20 Parkinson's disease; N32.89 Other specified disorders of bladder; R31.0 Gross hematuria; F03.90 Unspecified dementia, unspecified severity, without behavioral disturbance, psychotic disturbance, mood disturbance, and anxiety; G40.909 Epilepsy, unspecified, not intractable, without status epilepticus; Z86.73 Personal history of transient ischemic attack (TIA), and cerebral infarction without residual deficits; Z88.8 Allergy status to other drugs, medicaments and biological substances; Z87.891 Personal history of nicotine dependence; Z90.89 Acquired absence of other organs; Z79.899 Other long term (current) drug therapy
CPT/HCPCS: 36415; 71045; 80048; 80053; 81000-TC; 82550-TC; 83735-TC; 84100-TC; 84484; 85025; 85610-TC; 85730-TC; 86870; 86886; 86900; 86901; 87070; 87081; 87086; 87186-TC; 88108; 88307; 93005; 94010; 96361; 96374; 96375; 97110-GP; 97116-GP; 97530-GP; 99291; J0692; J0696; J1200; J1630; J2250; J2704; J7030; J7060; Q9967